=== PATIENT | male | born 1965 | race Caucasian/White ===

== ENCOUNTER → 2020-10-22 | Day surgery (SDC) | payer OTHER ==
[~2020-10-22] MED LIST: COLACE100 MG PO; HYDROCODON-ACE1 EAC2 PO; LOSARTAN POTAS100 MG PO; METOPROLOL SUCC25 MG PO; NORVASC5 MG PO; OMEPRAZOLE40 MG PO
== END | disposition home or self-care (01) ==
LOC: OR 06:12
DX: K80.10 Calculus of gallbladder with chronic cholecystitis without obstruction (principal); K21.9 Gastro-esophageal reflux disease without esophagitis; I10 Essential (primary) hypertension; Z88.8 Allergy status to other drugs, medicaments and biological substances; Z79.899 Other long term (current) drug therapy
CPT/HCPCS: J0690; J1100; J2001; J2250; J2310; J2405; J2704; J2710; J3010; J7030; J7120